=== PATIENT | female | born 1975 | race Caucasian/White ===

== ENCOUNTER 2024-09-16 17:36 | Emergency (ER) | payer MEDICAID ==
[~2024-09-16] VITALS: Ht 160 cm; Wt 72.6 kg
[2024-09-16 18:05] VITALS: BP 105/60; PULSE 114; RESP 20; TEMP 97.1; O2SAT 96
[2024-09-16 19:12] LABS: BASOPHILS % (AUTO) 0.2 % (0.0-2.0); EOSINOPHILS % (AUTO) 0.1 % (0.0-4.0); HEMATOCRIT 31.2 % (36-48); HEMOGLOBIN 10.4 g/dL (12.0-16.0); LYMPHOCYTES # (AUTO) 0.7 K/uL (2.5-16.5); LYMPHOCYTES % (AUTO) 7.7 % (20.5-51.1); MEAN CORPUSCULAR HEMOGLOBIN 29 pg (27-31); MEAN CORPUSCULAR HGB CONC 33 g/dL (33-37); MEAN CORPUSCULAR VOLUME 87.7 fL (80-94); MONOCYTES # (AUTO) 0.6 K/uL (0.8-1.0); PLATELET COUNT (AUTO) 397 K/uL (140-450); RED BLOOD CELL COUNT(AUTO) 3.56 MIL/uL (4.20-5.40); RED CELL DISTRIBUTION WIDTH 14.9 % (11.6-13.7)
[2024-09-16 19:15] LABS: BILIRUBIN,URINE NEGATIVE (NEGATIVE); BLOOD, URINE TRACE-I (NEGATIVE); LEUKOCYTE ESTERASE ,URINE 1+ (NEGATIVE); NITRITE, URINE POSITIVE (NEGATIVE); PROTEIN,URINE 1+ (NEGATIVE); UGLUCOSE NEGATIVE (NEGATIVE); UROBILINOGEN,URINE 0.2 EU/dL (0.2 - 1)
[2024-09-16 19:17] LABS: WHITE BLOOD COUNT (AUTO) 9.3 K/uL (4.8-10.8)
[2024-09-16 19:18] LABS: APPEARANCE,URINE CLOUDY (CLEAR); COLOR,URINE AMBER (YELLOW)
[2024-09-16 19:21] LABS: BACTERIA,URINE 10-30 (MOD) /HPF (None Seen); RBC,URINE 0-5 /HPF (0-5); SQUAMOUS EPITHELIAL CELL,UR 4-10 (MOD) /LPF (0-3 (FEW))
[2024-09-16 19:28] LABS: ANION GAP 11.7 (8-16); CALCIUM 8.1 mg/dL (8.5-10.1); CARBON DIOXIDE 26.9 mmol/L (21-32); CREATININE 0.8 mg/dL (0.6-1.3); POTASSIUM 3.6 mmol/L (3.5-5.1)
[2024-09-16 19:34] LABS: ALBUMIN 3.6 g/dL (3.4-5.0); BILIRUBIN,DIRECT 0.2 mg/dL (0.0-0.3); TOTAL BILIRUBIN 0.7 mg/dL (0.0-1.0); TOTAL PROTEIN, SERUM 7.7 g/dL (6.4-8.2)
[2024-09-16] MEDS: ACETAMINOPHEN EXTRA STRENGTH 500 MG TAB PO ONE (21:15)
[2024-09-16] MEDS ORDERED: ACETAMINOPHEN 325 MG TAB ONE (21:18)
[2024-09-16] MEDS: KETOROLAC 30 MG/ML VIAL IM ONE (21:24)
[2024-09-16] MEDS ORDERED: CEPH-588 PO (23:33)
[2024-09-16] MEDS ORDERED: METO-486 PO (23:35)
[2024-09-16 23:50] VITALS: BP 115/76; PULSE 89; RESP 17; TEMP 97.8; O2SAT 96
== END 2024-09-16 23:50 | disposition home or self-care (01) ==
LOC: MED 17:36
DX: K80.20 Calculus of gallbladder without cholecystitis without obstruction (principal); N39.0 Urinary tract infection, site not specified; K56.7 Ileus, unspecified; Z79.899 Other long term (current) drug therapy
CPT/HCPCS: 36415; 74176; 76705; 80048; 80076; 81001; 81025; 83690; 85025; 87086; 87186; 96372; 99285; J1885